=== PATIENT | female | born 1980 | race Caucasian/White ===

== ENCOUNTER 2020-02-11 12:13 | Inpatient (IN) | payer OTHER ==
[~2020-02-11] VITALS: Ht 167.6 cm; Wt 77.1 kg
[2020-02-11] VITALS (12 sets, daily range): BP systolic 83–134; BP diastolic 48–82
[~2020-02-11 12:13] MED LIST: BACTROBAN NASAL1 GM NASAL; CIPRO500 MG PO; CLARITIN-D 121 EACH PO; FLONASE 0.05%50 MCG NS; FOLIC ACID1 MG PO; HYDROCORTISONE120 M1 TP; NAPROSYN500 MG PO; NORCO 5-325 TA1 EACH PO; ROBAXIN 750 MG750 M1 PO; TRAMADOL 50 MG50 MG PO; TRAZODONE HCL100 MG PO; WELLBUTRIN XL150 MG PO; ZOLOFT
[2020-02-11 12:55] LABS: URINE BILIRUBIN NEGATIVE (Negative); URINE BLOOD 1+ (Negative); URINE CLARITY CLEAR; URINE COLOR YELLOW; URINE GLUCOSE-RANDOM TRACE (Negative); URINE KETONES 2+ (Negative); URINE LEUKOCYTES-REFLEX TRACE (Negative); URINE NITRITE-REFLEX POSITIVE (Negative); URINE PROTEIN TRACE (Negative); URINE SPECIFIC GRAVITY 1.025 (1.005-1.030); URINE UROBILINOGEN 0.2 E.U./dl (0.2-1.0)
[2020-02-11 13:01] LABS: AMP/METHAMP Negative (Negative); BACTERIA-REFLEX >30 Many /HPF (None Seen); BARBITURATES Negative (Negative); BENZODIAZEPINES Negative (Negative); COCAINE Negative (Negative); CRYSTALS None Seen /LPF (None Seen); METHADONE Negative (Negative); MUCUS 0-3 Light strn/LPF (None Seen); OPIATES Negative (Negative); PCP Negative (Negative); SQUAMOUS 0-3 Few /LPF (0-3); THC Negative (Negative); URINE RBC 0-2 Rare /HPF (0-2)
[2020-02-11 13:02] LABS: HYALINE CASTS 0-3 Few /LPF (None Seen)
[2020-02-11 13:06] LABS: ABSOLUTE MONOCYTES 0.7 thou/uL (0.0-1.2); BASOPHILS 0.5 %; HEMATOCRIT 39.4 % (37.0-47.0); HEMOGLOBIN 13.5 gm/dL (12.0-15.0); MCH 29.7 pg (26.0-34.0); MCHC 34.1 g/dL (28.0-37.0); MONOCYTES 9.1 %; MPV 6.8 fl. (7.2-11.1); NUCLEATED RBCS 0 /100WBC; PLATELET COUNT* 262 thou/uL (150-400); POLYS 77.4 %; RBC 4.53 mil/uL (4.20-5.00); RDW-CV 15.6 % (10.5-14.5); WBC 7.8 thou/uL (4.0-11.0)
[2020-02-11 13:17] LABS: APTT 26.8 Seconds (25.0-31.3); INR 1.1; PROTIME 11.4 Seconds (9.20-11.50)
[2020-02-11 13:24] LABS: CALCIUM 6.9 mg/dL (8.5-10.1); CREATININE 0.7 mg/dL (0.6-1.3)
[2020-02-11 13:28] LABS: POTASSIUM 2.7 mmol/L (3.5-5.1)
[2020-02-11 13:30] LABS: ALBUMIN 2.8 g/dL (3.4-5.0); TOTAL BILIRUBIN 0.3 mg/dL (<0.1-1.0); TOTAL PROTEIN 5.7 g/dL (6.4-8.2)
[2020-02-11 13:32] LABS: ACETAMINOPHEN 3 ug/mL (10-30); SALICYLATE < 2.8 mg/dL (2.8-20.0)
[2020-02-11 13:34] LABS: ALCOHOL 551 mg/dL (<10)
--- NOTE | 2020-02-11 14:30 | NUR ---
PATIENT RETURED FROM CT SCAN NOT PERFORMED DUE TO PATIENT BEING AGITATED WHILE IN CT UPON RETURNED FROM CT MILDLY AROUSABLE
[2020-02-11 18:31] LABS: ABSOLUTE LYMPHOCYTES 2.1 thou/uL (0.8-5.3); ABSOLUTE MONOCYTES 0.6 thou/uL (0.0-1.2); ABSOLUTE NEUTROPHILS 3.7 thou/uL (1.6-8.1); BASOPHILS 0.4 %; EOSINOPHILS 0.1 %; HEMATOCRIT 39.6 % (37.0-47.0); HEMOGLOBIN 13.5 gm/dL (12.0-15.0); MCH 29.9 pg (26.0-34.0); MCHC 34.2 g/dL (28.0-37.0); MCV 87.5 fL (80.0-100.0); MPV 7.1 fl. (7.2-11.1); NUCLEATED RBCS 0 /100WBC; PLATELET COUNT* 261 thou/uL (150-400); POLYS 57.5 %; RBC 4.53 mil/uL (4.20-5.00); RDW-CV 15.9 % (10.5-14.5); WBC 6.5 thou/uL (4.0-11.0)
[2020-02-11 18:45] LABS: ALBUMIN 2.8 g/dL (3.4-5.0); ALKALINE PHOSPHATASE 96 U/L (46-116); ANION GAP 10 mmol/L (7-16); BUN 11 mg/dL (7-18); CALCIUM 6.8 mg/dL (8.5-10.1); CHLORIDE 104 mmol/L (98-107); CO2 28 mmol/L (21-32); CREATININE 0.6 mg/dL (0.6-1.3); GLUCOSE 92 mg/dL (70-99); MAGNESIUM 2.3 mg/dL (1.8-2.4); PHOSPHORUS* 3.6 mg/dL (2.5-4.9); SGOT 59 U/L (15-37); SGPT 30 U/L (30-65); SODIUM 142 mmol/L (136-145); TOTAL BILIRUBIN 0.3 mg/dL (<0.1-1.0); TOTAL PROTEIN 5.7 g/dL (6.4-8.2)
[2020-02-11 18:46] LABS: AMMONIA < 10 umol/L (11-32)
[2020-02-12] VITALS (45 sets, daily range): BP systolic 83–119; BP diastolic 44–83
[2020-02-12 03:12] LABS: INR 1.2; PROTIME 12.3 Seconds (9.20-11.50)
[2020-02-12 03:13] LABS: CALCIUM 6.1 mg/dL (8.5-10.1); CREATININE 0.6 mg/dL (0.6-1.3); MAGNESIUM 1.6 mg/dL (1.8-2.4); PHOSPHORUS* 2.5 mg/dL (2.5-4.9); POTASSIUM 3.5 mmol/L (3.5-5.1)
--- NOTE | 2020-02-12 08:26 | NUR ---
ASSESSMENTS CHARTED. PATIENT HAD BEEN TEARFUL FOR MOST OF THE NIGHT WHEN SPEAKING ABOUT HER ALCOHOL PROBLEMS. PATIENT'S FRIEND WAS AT BEDSIDE FOR THE WHOLE NIGHT. CIWA DOWN TO 7 WHEN AWAKE. PATIENT RESPONDING WELL TO ATIVAN. PATIENT RECIEVED ADDITIONAL FLUIDS FOR SEPSIS OVERNIGHT. PATIENT SLEEPING AT CURRENT TIME. NO SIGNIFICANT EVENTS OVERNIGHT. VSS
--- NOTE | 2020-02-12 19:17 | NUR ---
ASSESSMENT CHARTED. UP TO CHAIR. GENERALIZED PAIN RELIEVED WITH PRN PAIN MEDICATION. ADVANCED TO CLEAR LIQUID DIET AND TOLERATING WELL. NO OTHER COMPLAINTS DURING THIS SHIFT.
[2020-02-13] VITALS (14 sets, daily range): BP systolic 103–122; BP diastolic 61–90
[2020-02-13 04:04] LABS: ABSOLUTE EOSINOPHILS 0.1 thou/uL (0.0-0.7); ABSOLUTE LYMPHOCYTES 1.4 thou/uL (0.8-5.3); ABSOLUTE MONOCYTES 0.2 thou/uL (0.0-1.2); ABSOLUTE NEUTROPHILS 1.5 thou/uL (1.6-8.1); BASOPHILS 0.8 %; EOSINOPHILS 1.6 %; HEMATOCRIT 26.9 % (37.0-47.0); MCHC 34.4 g/dL (28.0-37.0); MCV 87.3 fL (80.0-100.0); MONOCYTES 6.7 %; MPV 7.6 fl. (7.2-11.1); NUCLEATED RBCS 0 /100WBC; POLYS 46.9 %; RBC 3.08 mil/uL (4.20-5.00); RDW-CV 15.6 % (10.5-14.5); WBC 3.2 thou/uL (4.0-11.0)
[2020-02-13 04:20] LABS: ALBUMIN 2.1 g/dL (3.4-5.0); CALCIUM 6.7 mg/dL (8.5-10.1); CREATININE 0.4 mg/dL (0.6-1.3); TOTAL BILIRUBIN 0.7 mg/dL (<0.1-1.0); TOTAL PROTEIN 4.3 g/dL (6.4-8.2)
[2020-02-13 04:47] LABS: HEMOGLOBIN 9.2 gm/dL (12.0-15.0); PLATELET COUNT* 139 thou/uL (150-400)
[2020-02-13 05:44] LABS: POTASSIUM 2.7 mmol/L (3.5-5.1)
[2020-02-13 06:18] LABS: ESR (SEDRATE) 4 mm/hr (0-20)
[2020-02-13 07:04] LABS: MAGNESIUM 1.4 mg/dL (1.8-2.4); PHOSPHORUS* 2.4 mg/dL (2.5-4.9)
--- NOTE | 2020-02-13 07:38 | NUR ---
ASSESSMENTS CHARTED. PATIENT'S LAB VALUES RETURNED ABNORMAL. FLUIDS CHANGED PER DR. LYONS. POTASSIUM REPLACEMENT INFUSING PER PROTOCOL. PATIENT SLEPT FOR THE MAJORITY OF THE SHIFT. URINE OUTPUT REMAINS LOW DESPITE INTAKE OVER 2L OF FLUIDS. VSS.
[2020-02-13] MEDS ORDERED: PRENATAL PO (08:33)
[2020-02-13] MEDS ORDERED: VITAMIN B-1100 M1 PO (08:33)
--- NOTE | 2020-02-13 13:18 | NUR ---
WOUND NURSE: PATIENT SEEN R/T CLOSED ABDOMINAL INCISON WITH APPEARS CLOSED WITH INTACT SCAR TISSUE. VERY MILD LOCALIZED REDNESS, NO ACTIVE DRAINAGE. NO INTERVENTION RECOMMENDED AT THIS TIME.
[2020-02-13] MEDS ORDERED: KEFLEX500 M1 PO (14:28)
[2020-02-13] MEDS ORDERED: BRINTELLIX20 MG PO (15:18)
--- NOTE | 2020-02-13 16:52 | EKG ---
[place] [address] ELECTROCARDIOGRAM REPORT Name: RUSH CAIN Room: [address] IN ..#: [id number] Admission: 02/11/20 Attend Phys: Jacques Finley Discharge: 02/13/20 Date of : 84 Date of Service: 02/11/20 1219 Report #: [id number] THIS REPORT FOR: //name// [facility] ED Test Date: 2020-02-11 Test Time: 12:19:51 Pat Name: RUSH CAIN Department: Room: [facility] Gender: F Sports Activities Foul Judge: KEHINDE : 1980 Requested By: Oscar Castaneda Order Number: [id number] MD: Sai Ulloa Measurements Intervals [place] Rate: 75 P: 56 GA: 151 QRS: 32 QRSD: 98 T: 42 QT: 459 QTc: 513 Interpretive Statements Sinus rhythm Borderline T wave abnormalities Prolonged QT interval Compared to ECG 06/12/2017 15:09:14 Sinus tachycardia no longer present T-wave abnormality still present Electronically Signed On 02-13-2020 16:52:01 CDT by Sai Ulloa [email or web address] <ELECTRONICALLY SIGNED> By: Sai Ulloa MD, [facility] 02/13/20 1652 1219 1219 Sai Ulloa MD, FAC /EPI
== END 2020-02-13 14:45 | disposition home or self-care (01) | DRG 872 ==
LOC: M.ERS 12:13 → M.TBA-ER 14:22 → M.ICU 17:44
PROVIDERS: Emergency Medicine Emergency Medical Services; ADMIT Internal Medicine; ATTEND Internal Medicine
DX: A41.9 Sepsis, unspecified organism (principal); N39.0 Urinary tract infection, site not specified; M62.82 Rhabdomyolysis; G47.00 Insomnia, unspecified; E87.6 Hypokalemia; F10.129 Alcohol abuse with intoxication, unspecified; Z20.828 Contact with and (suspected) exposure to other viral communicable diseases; Z79.899 Other long term (current) drug therapy

== ENCOUNTER 2021-03-01 11:08 | Emergency (ER) | payer OTHER ==
[~2021-03-01] VITALS: Ht 167.6 cm; Wt 72.6 kg
[~2021-03-01 11:08] MED LIST changes: +BRINTELLIX20 MG PO; +KEFLEX500 M1 PO; +PRENATAL PO; +VITAMIN B-1100 M1 PO
[2021-03-01] MEDS ORDERED: DESYREL150 MG PO (11:14)
[2021-03-01 11:39] LABS: ABSOLUTE LYMPHOCYTES 1.2 thou/uL (0.8-5.3); ABSOLUTE MONOCYTES 0.2 thou/uL (0.0-1.2); ABSOLUTE NEUTROPHILS 2.5 thou/uL (1.6-8.1); BASOPHILS 0.7 %; HEMATOCRIT 32.1 % (37.0-47.0); LYMPHOCYTES 29.9 %; MCH 22.6 pg (26.0-34.0); MCHC 31.2 g/dL (28.0-37.0); MCV 72.6 fL (80.0-100.0); MONOCYTES 6.1 %; MPV 6.6 fl. (7.2-11.1); NUCLEATED RBCS 0 /100WBC; PLATELET COUNT* 313 thou/uL (150-400); POLYS 63.3 %; RBC 4.43 mil/uL (4.20-5.00); RDW-CV 17.1 % (10.5-14.5)
[2021-03-01 11:47] LABS: CALCIUM 7.5 mg/dL (8.5-10.1); CREATININE 0.8 mg/dL (0.6-1.3); POTASSIUM 3.4 mmol/L (3.5-5.1)
[2021-03-01 11:52] LABS: ALBUMIN 3.5 g/dL (3.4-5.0); TOTAL BILIRUBIN 0.3 mg/dL (<0.1-1.0); TOTAL PROTEIN 7.3 g/dL (6.4-8.2)
[2021-03-01 13:02] VITALS: BP 159/138
== END 2021-03-01 13:02 | disposition home or self-care (01) ==
LOC: M.ERS 11:08
PROVIDERS: Family Medicine
DX: F10.129 Alcohol abuse with intoxication, unspecified (principal); Z98.890 Other specified postprocedural states; Z79.899 Other long term (current) drug therapy; Y90.8 Blood alcohol level of 240 mg/100 ml or more